=== PATIENT | male | born 1965 | race Caucasian/White ===

== ENCOUNTER 2017-02-21 08:47 | Day surgery (SDC) | payer BC ==
[~2017-02-21] VITALS: Ht 177.8 cm; Wt 88.2 kg
[~2017-02-21 08:47] MED LIST: FISH1CAP2 PO; LEVO200T3 PO; LIDOCAINE 1% (10mg/ml) 2ml SDV INJ ONE; LR 1,000 ML IV SCH
--- OUTSIDE RECORDS SUMMARY | 2017-02-21 08:51 | XMS REPORT | Continuity of Care Document ---
Author Author [facility] Organization [facility] Address Unknown Phone Unavailable Support Name Relationship Address Phone LIGIA DOMINGUEZ MD Caregiver [address] [place] [address] [address] [address] Unavailable Clemencia COLEMAN MD Caregiver [address] [address] Unavailable OBDULIA JIN Next Of [place] [address] [place] [address] Insurance Providers Guarantor Lucian Jin Address [address] [place] [address] Email [email or web address] Payer [employer] Other Policy Number [id number] Subscriber's Name Lucian Jin Relationship 18 Self Group Number [id number] Effective Date 13 Advance Directives Directive Response Recorded Date/Time Ordered Resuscitation Status Full Code 09/26/16 3:14pm Resuscitation Documents on File No 09/27/16 8:56am DPOA for Healthcare Only No 09/27/16 8:56am Living Will No 09/27/16 8:56am Problems Active Problems Medical Problem Onset Date Status VIRAL ILLNESS WITH HEADACHE Unknown Acute Medications Current Home Medications Medication Dose Units Route Directions Days Qty Instructions Start Date Levothyroxine Sodium (Synthroid) 200 Mcg Tablet 1 Tab Oral Daily 30 Tablet 09/26/16 [place]-3 Fatty Acids/Fish Oil (Fish Oil 1,000 Mg Capsule) 1 Each Capsule 1,000 Mg Oral Daily 09/26/16 Social History Social History Problem Response Recorded Date/Time Onset Date Status Reason for Hospitalization SCREENING COLONOSCOPY 09/27/2016 12:35pm Not Applicable Not Applicable Chewing Tobacco Status Yes 11/16/2013 2:18pm Not Applicable Not Applicable Hx Substance Use No 11/16/2013 2:18pm Not Applicable Not Applicable Hx Alcohol Use Y OCC 11/16/2013 2:18pm Not Applicable Not Applicable Has the pt used tobacco in the last 12 months No 09/26/2016 3:04pm Not Applicable Not Applicable Query Response Start Date Stop Date Smoking Status Never smoker Hospital Discharge Instructions Instructions: Care Instructions: I was in the hospital because (patient own words): "COLONOSCOPY" Discharge Diet: Resume previous diet Discharge Activity: Restricted today, as tolerated tomorrow. Follow Up Appointments: None Pending Lab / Results: No Pending Lab Expected Signs/Symptoms: None Notify Physician If: Severe abdominal pain. During Business Hours:: Please call the physician's office at [phone] and choose option 2. After Business Hours:: Please call [phone] and have the sand slinger operator page Dr. Dominguez. Pain Management/Treatment: N/A Wound/Incision Care: N/A Condition at time of discharge: Good Plan of Care Discharge Date 09/27/16 1:00pm Prescriptions See Medication Section Functional Status Query Response Date Recorded Ability to complete ADL's impeded by No change September 27, 2016 8:56am Allergies, Adverse Reactions, Alerts No known allergies. Immunizations Query Response on File Recorded Date/Time Hx Influenza Vaccination Y 2 WEEKS AGO-SEPTEMBER 2016 09/27/16 8:58am Hx Influenza Vaccination Y 2 WEEKS AGO-SEPTEMBER 2016 09/27/16 8:58am Vital Signs Acute Vital Signs Vital Response Date/Time Temperature (Fahrenheit) 98.9 deg F (96.8 - 99.1) 09/27/2016 12:11pm Temperature (Calculated Celsius) 37.78817 degrees C (36.0 - 37.3) 09/27/2016 12:11pm Temperature Source Temporal 09/27/2016 12:11pm Pulse Rate (adult) 50 bpm (60 - 100) 09/27/2016 12:45pm Respiratory Rate 22 breaths/min (10 - 20) 09/27/2016 12:45pm O2 Sat by Pulse Oximetry 97 % (90 - 100) 09/27/2016 12:45pm Oxygen Delivery Method Room Air 09/27/2016 12:45pm Oxygen Flow Rate 5.00 L/min 09/27/2016 12:25pm Blood Pressure 91/56 mm Hg 09/27/2016 12:45pm Blood Pressure Source Automatic Cuff 09/27/2016 12:45pm Height (Feet) 5 feet 09/27/2016 8:30am Height (Inches) 10.00 inches 09/27/2016 8:30am Weight (Kilograms) 85.900 kg 09/27/2016 8:30am Body Mass Index (BMI) 27.2 09/27/2016 8:30am Results No known relevant diagnostic tests, laboratory data and/or discharge summary. Procedures Procedure Status Date Provider(s) Colonoscopy with polypectomy and biopsy Completed 09/27/16 LIGIA DOMINGUEZ MD Encounters Encounter Location Arrival/Admit Date Discharge/Depart Date Attending Provider Departed Surgical [facility] 09/27/16 8:21am 09/27/16 1: 00pm LIGIA DOMINGUEZ MD
--- OUTSIDE RECORDS SUMMARY | 2017-02-21 08:51 | XMS REPORT | Continuity of Care Document ---
Author Author [facility] Organization [facility] Address Unknown Phone Unavailable Allergies Active Description Code Type Severity Reaction Onset Reported/Identified Relationship to Patient Clinical Status Yes No Known Medication Allergies NKMA N/A N/A 10/13/2014 Yes No Known Allergies No Known Allergies Drug Allergy Unknown N/A 07/19/2015 Medications Problems Procedures Results Test Result Range CBC W/DIFF - 07/19/15 17:45 BASOPHIL # 0.0 k/cumm 0.0-0.2 BASOPHIL % 1 % 0-1 EOSINOPHIL # 0.1 k/cumm 0.1-0.5 EOSINOPHIL % 2 % 2-4 GRANULOCYTE # 4.9 k/cumm 2.0-9.0 GRANULOCYTE % 62 % 50-75 LYMPHOCYTE # 2.1 k/cumm 1.0-4.0 LYMPHOCYTE % 27 % 20-30 MEAN CELL HGB 30.6 pg 27.0-33.0 MEAN CELL HGB CONCENTRATION 35.6 g/dL 32.0-37.0 MEAN CELL VOLUME 86.0 fl 80.0-100.0 MONOCYTE # 0.8 k/cumm 0.1-1.0 MONOCYTE % 9 % 4-6 RED BLOOD CELL 5.07 m/cumm 4.00-6.00 RED CELL DISTRIBUTION WIDTH 13.0 % 11.0- 15.6 WHITE BLOOD CELL 8.0 k/cumm 5.0-10.0 HEMOGLOBIN 15.5 gm/dL 14.0-18.0 HEMATOCRIT 43.6 % 40.0-54.0 PLATELET COUNT 240 k/cumm 150-450 Microbiology TROPONIN I BEDSIDE - 07/19/15 17:45 METHOD Bedside TROPONIN I < 0.04 ng/mL < 0.11 Microbiology THYROID STIM HORMONE (TSH) - 07/19/15 17:45 THYROID STIM HORMONE (TSH) 3.52 uIU/mL 0.34-4.82 Microbiology TROPONIN I BEDSIDE - 07/19/15 17:45 METHOD Bedside TROPONIN I < 0.04 ng/mL < 0.11 CHEM/HEM PROFILE-BEDSIDE - 07/19/15 17:48 POTASSIUM 3.5 mmol/L 3.5-5.3 METHOD Bedside ANION GAP 15 mmol/L 10-20 METHOD Bedside GLUCOSE 90 mg/dL 70-99 BLOOD UREA NITROGEN 16 mg/dL 7-20 CREATININE 1.3 mg/dL 0.7-1.3 HEMOGLOBIN 14.6 gm/dL 14.0-18.0 HEMATOCRIT 43.0 % 40.0-54.0 SODIUM 141 mmol/L 135-148 CHLORIDE 101 mmol/L 98-110 CARBON DIOXIDE 28 mmol/L 21-32 CALCIUM IONIZED 4.7 mg/dL 4.5-5.3 Microbiology URINALYSIS, ROUTINE - 07/19/15 18:00 UA LEUKOCYTE ESTERASE DIPSTICK TRACE NEGATIVE UA NITRITE DIPSTICK NEGATIVE NEGATIVE UA PROTEIN DIPSTICK NEGATIVE NEGATIVE UA GLUCOSE DIPSTICK NEGATIVE NEGATIVE UA KETONE DIPSTICK NEGATIVE NEGATIVE UA UROBILINOGEN DIPSTICK NORMAL NORMAL UA BILIRUBIN DIPSTICK NEGATIVE NEGATIVE UA BLOOD DIPSTICK NEGATIVE NEGATIVE UA SPECIFIC GRAVITY 1.015 1.015-1.025 UR PH 8.0 5.0-7.0 Microbiology UA MICROSCOPIC - 07/19/15 18:00 UA EPITHELIAL CELLS 1+ epi/hpf 0 - 1+ UA VOLUME FOR EXAM 12.0 mL (12mL STD) UA WBC 0-1 wbc/hpf 0 - 5 Encounters ACCT No. Visit Date/Time Discharge Status Pt. Type Provider Facility Loc./Unit Complaint [id number] 07/19/2015 17:12:00 2014 18:57:00 DIS Emergency Rhea VALLADARES, [place] [facility] E.ED
[2017-02-21 09:11] VITALS: Ht 177.8 cm; Wt 88.2 kg
[2017-02-21 09:12] VITALS: BP 104/71; PULSE 61; RESP 16; TEMP 98.2; O2SAT 96
--- NOTE | 2017-02-21 11:08 | ANESPREOP ---
Anesthesia Record Date and Time DATE: 02/21/17 TIME: 11:07 Pre-Op Diagnosis upper abd. pain Proposed Surgical Procedure EGD Allergies: Coded Allergies: No Known Allergies (Unverified , 02/21/17) Ht/Wt/BMI Height: 5 ' 10.00 " Weight: 88.200 kg BMI: 27.9 kg/m2 Vital Signs Date Time Temp Pulse Resp B/P Pulse Ox O2 Delivery O2 Flow Rate FiO2 02/21/17 09:12 98.2 61 16 104/71 96 Room Air Medications Inpatient Medications Current Medications Medications (Trade) Dose Ordered Sig/Jay Start Time Stop Time Status Last Admin Dose Admin Lactated Ringer's (Lactated Ringers) 1,000 ml @ 50 mls/hr Q20H 02/21/17 07:00 02/21/17 09:37 50 MLS/HR Levothyroxine Sodium (Synthroid) 200 Mcg Tablet, 1 TAB PO DAILY, (Reported) Last Taken: on 02/20/17 0630 [place]-3 Fatty Acids/Fish Oil (Fish Oil 1,000 mg Capsule) 1 Each Capsule, 1,000 MG PO DAILY, (Reported) Last Taken: on 02/20/17 0630 Currently on Beta Daryl: No Medical/Surgical History Anesthesia PMH: Reports: Reflux, Thyroid Disease (HYPOTHYROIDISM ), Denies: * Diabetes, *Hypertension, Anesthesia Reactions (NO KNOWN ISSUES ), Asthma, Cancer , Clotting Problems, Glaucoma, Malignant Hyperthermia, Pneumonia, Sleep Apnea Smoking Status: Never smoker Has pt. smoked today?: No Use Chewing Tobacco?: No Second Hand Exposure: No Substance Use Type: does not use Alcohol Intake: none Past Surgical History Orthopedic Surgeries: Yes - RIGHT HIP DISLOCATION Abdominal Surgeries: Yes - APPY-1985, LEFT INGUINAL HERNIA REPAIR Genitourinary Surgeries: Cardiac Surgeries: Endocrine Surgeries: Reproductive Surgeries: Neurological Surgeries: Ear Surgeries: Nose Surgeries: Throat Surgeries: Other Surgeries: Yes - EXCISION OF CYST-BACK Anesthesia Adverse Reactions: FOUND none Pertinent Findings EKG Rhythm: Sinus Rhythm Physical Exam Respiratory: Bilat breath sounds equal, Lungs clear Cardiovascular: FOUND Regular rate, rhythm, FOUND No murmur Airway Assessment Mallampati Score: I TMD: 3 Fingerbreadths Neck Extension: Good Overall Assessment: No Airway Concerns ASA: 2 Plan Anesthesia Plan: TIVA Discussion Discussed risks/options/alternatives of anesthesia and questions answered. Patient consents. Nursing pain assessment noted. Present: Spouse Attestation Statement Prior to the delivery of any anesthetic medication, I examined the patient, developed the plan, obtained the patient's consent and discussed the risk and benefits of the procedure with the patient/guardian. ANDRES SCHUSTER CRNA Feb 21, 2017 11:08
[2017-02-21] MEDS ORDERED: PROPOFOL 500mg 50 ML IV ONE (12:04)
[2017-02-21] MEDS ORDERED: LIDOCAINE 1% (10mg/ml) 2ml SDV ONE (12:04)
[2017-02-21] MEDS ORDERED: LIDOCAINE VISCOUS 2% Oral Soln 15ml UD ONE (12:14)
[2017-02-21 12:34] VITALS: BP 105/67; PULSE 67; RESP 15; TEMP 98.3; O2SAT 95
--- NOTE | 2017-02-21 12:41 | GSPOSTPROC ---
Immediate Operative Note DATE: 02/21/17 TIME: 12:40 Postop Diagnosis: Upper abdominal pain Surgical Procedure: EGD Surgeon: Tabitha ASA: 2 LIGIA DOMINGUEZ MD Feb 21, 2017 12:41
--- NOTE | 2017-02-21 12:44 | ANESPO ---
Post-Op Note Date 02/21/17 Time: 12:43 Status Pt Participated in Evaluation: Pt participated in person Vital Signs Date Time Temp Pulse Resp B/P Pulse Ox O2 Delivery O2 Flow Rate FiO2 02/21/17 09:12 98.2 61 16 104/71 96 Room Air Respiratory Function: Airway patent, Regular respirations Cardiovascular Function: Regular pulse Mental Status: Alert/oriented Pain Level Intensity: 0 Hydration: IV infusing Complications during Recovery None apparent Post-Anesthesia Notes pt. rhina. well Follow-Up Instructions Instructions Per Surgeon Additional Information none ANDRES SCHUSTER CRNA Feb 21, 2017 12:44
[2017-02-21 12:50] VITALS: BP 105/71; PULSE 62; RESP 14; O2SAT 96
[2017-02-21 13:08] VITALS: BP 102/67; PULSE 56; RESP 11; O2SAT 97
--- NOTE | 2017-02-21 20:53 | OPNOTEF ---
DATE OF OPERATION 02/21/2017 PREOPERATIVE DIAGNOSIS Upper abdominal pain since October 2016. POSTOPERATIVE DIAGNOSES 1. Upper abdominal pain since October 2016. 2. Normal findings at upper gastrointestinal tract at esophagogastroduodenoscopy. OPERATION Esophagogastroduodenoscopy. SURGEON Dr. Tabitha BAZAN. ASA Class 2 FINDINGS Mucosa was normal throughout the esophagus, stomach and duodenum. There were no ulcers present at the stomach or duodenum. There were no gastric or duodenal erosions. There was no gastritis. There was no duodenitis. Esophageal mucosa appeared normal. No cause for upper abdominal pain was found at the upper gastrointestinal tract at esophagogastroduodenoscopy today. DESCRIPTION OF OPERATION The patient was brought to the endoscopy room. The patient was placed on a cart in the endoscopy room. Topical anesthesia was achieved at the oropharynx in the usual manner. The patient was placed in left lateral recumbent position on the cart. The patient was premedicated with intravenous sedation medication administered by the nurse cardiovascular tech. The Olympus upper GI endoscope was used. The upper GI endoscope was introduced into the esophagus. The upper GI endoscope was advanced down through the esophagus and stomach and into the duodenum. The upper GI endoscope was then withdrawn from the duodenum back into the stomach. The endoscopic biopsy forceps was used to obtain a sample of prepyloric antral gastric mucosa which was submitted for YASMIN-test studies. The upper GI endoscope was retroflexed and the gastroesophageal junction was viewed from below. The upper GI endoscope was straightened out. Stomach was examined further. The upper GI endoscope was then withdrawn out through the stomach and esophagus and removed from the patient. Findings throughout the procedure were as described above. The patient did continue to receive intravenous sedation medication administered by the nurse cardiovascular tech throughout the procedure. The patient did appear to tolerate the operation well. [facility] [facility]
== END 2017-02-21 13:10 | disposition home or self-care (01) ==
LOC: NSC 08:47
PROVIDERS: ATTEND Surgery
DX: R10.11 Right upper quadrant pain (principal); R10.12 Left upper quadrant pain
CPT/HCPCS: 43239; 87081; J2704; J7120

== ENCOUNTER → 2017-02-22 | Outpatient (CLI) | payer BC ==
[~2017-02-22] MED LIST changes: -LIDOCAINE 1% (10mg/ml) 2ml SDV INJ ONE; -LR 1,000 ML IV SCH
--- NOTE | 2017-02-22 09:07 | DI ---
Indication: ITS.REASON: R10.11 RUQ ABD PAIN PROCEDURE: US GALLBLADDER: Encounter: Initial Comparison: None Technique: Grayscale and color Doppler sonographic imaging of the right upper quadrant of the abdomen was performed. Findings: 1 cm cyst noted in the left hepatic lobe. Hepatic parenchyma is otherwise homogeneous without evidence for focal mass. The gallbladder is normal. There is no wall thickening, pericholecystic fluid, sonographic Wolf's sign or cholelithiasis. Both the intra and extrahepatic biliary system are of normal caliber with the common duct measuring 5 mm in dimension. Visualized portions of the head and body of the pancreas are unremarkable. The right kidney is present without collecting system dilatation. The right kidney measures 12 cm in length. Impression: Normal right upper quadrant sonogram. .
== END ==
LOC: IMA 06:40
PROVIDERS: ATTEND Surgery
DX: R10.11 Right upper quadrant pain (principal)